=== PATIENT | male | born 1995 | race Two or more races ===

== ENCOUNTER 2024-12-02 21:28 | Emergency (ER) | payer BC, OTHER ==
[~2024-12-02] VITALS: Ht 185.4 cm; Wt 102.2 kg
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
[2024-12-02 21:54] VITALS: BP 117/66; TEMP 98.8
[2024-12-02 21:57] VITALS: PULSE 89; RESP 20; O2SAT 96
== END 2024-12-02 22:02 | disposition home or self-care (01) ==
LOC: ER 21:28
DX: S80.12XA Contusion of left lower leg, initial encounter (principal); M25.532 Pain in left wrist; V43.52XA Car driver injured in collision with other type car in traffic accident, initial encounter; Y93.89 Activity, other specified; Y92.410 Unspecified street and highway as the place of occurrence of the external cause; Y99.8 Other external cause status

== ENCOUNTER 2024-12-24 18:16 | Emergency (ER) | payer BC, OTHER ==
[~2024-12-24] VITALS: Ht 185.4 cm; Wt 101.9 kg
--- NOTE | 2024-12-24 20:57 | DVH ---
EXAM: CT HEAD WITHOUT CONTRAST INDICATION: head injury TECHNIQUE: CT of the head without intravenous contrast. Radiation Dose Information: CT Dose: CTDI volume is 64.67 mGy. Dose-length product is 1274.22 mGy*cm The dose indicators for CT are the volume Computed Tomography (CT) Dose Index (CTDIvol) and the Dose Length Product (DLP), and are measured in units of mGy and mGy-cm, respectively. These indicators are not patient dose, but values generated from the CT scanner acquisition factors. The report includes radiation exposure data for exposures received during this examination. COMPARISON: None FINDINGS: There is no evidence of acute intracranial hemorrhage, extra-axial collection, mass effect, midline s hift, herniation or hydrocephalus. The ventricles, sulci and cisterns are age appropriate. The rogers-white differentiation is intact. Patchy periventricular and subcortical white matter hypoattenuation is nonspecific but may be related to small vessel ischemic disease. The visualized paranasal sinuses and mastoid air cells are clear. The surrounding soft tissues and osseous structures are unremarkable. IMPRESSION: 1. No acute intracranial abnormality.
--- NOTE | 2024-12-24 21:05 | DVH ---
INDICATION: lumbar back pain TECHNIQUE: 3 views of the lumbar spine were obtained. COMPARISON: None FINDINGS: There are no acute fractures or subluxations. IMPRESSION: No acute fracture or subluxation.
[2024-12-24 22:05] VITALS: BP 107/62; TEMP 98.5
[2024-12-24 22:07] VITALS: PULSE 84; RESP 17; O2SAT 96
[2024-12-24] MEDS ORDERED: IBUP-1456 PO (23:01)
[2024-12-24] MEDS ORDERED: CYCL-837 PO (23:01)
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
== END 2024-12-24 23:15 | disposition home or self-care (01) ==
LOC: ER 18:16
DX: S39.012A Strain of muscle, fascia and tendon of lower back, initial encounter (principal); G44.209 Tension-type headache, unspecified, not intractable; V89.2XXA Person injured in unspecified motor-vehicle accident, traffic, initial encounter; Y93.89 Activity, other specified; Y92.410 Unspecified street and highway as the place of occurrence of the external cause; Y99.8 Other external cause status
CPT/HCPCS: 70450; 72100